=== PATIENT | male | born 1980 | race American Indian/Alaskan Native ===

== ENCOUNTER 2021-08-08 09:53 | Emergency (ER) | payer SELFPAY ==
[2021-08-08 10:05] VITALS: BP 154/103
[2021-08-08] MEDS ORDERED: ACETAMINOPHEN 500 MG TAB PO ONE (10:36)
--- NOTE | 2021-08-08 10:58 | Emergency Department Report ---
ED Male HPI - General Chief complaint: Urogenital-Male Stated complaint: POSS UTI Time Seen by Provider: 08/08/21 10:24 Source: patient Mode of arrival: Ambulatory Limitations: No Limitations - History of Present Illness Initial comments: 40-year-old -[place] male presents to the emergency room for 1 week history of hematuria. Patient reports that he noticed clots in his urine. He has no concern for STD. He does admit to urinary frequency. He states last night when he had intercourse with his he noticed blood. 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 He denies any body aches. Denies any testicular pain or testicular swelling no penile discharge. Patient reports he had a similar situation about a year ago has seen a urologist who told him that his urine was fine but he treated him presumptively for urinary tract infection. Onset/Timin -: week(s) Radiation: none Severity scale (0 -10): 0 blood in urine. denies: urinary retention, dysuria - Related Data Sexually active: Yes (No concerns for STD) Previous Rx's Medication Instructions Recorded Last Taken Type Naproxen [Naprosyn TAB] 500 mg PO BID #30 tablet 02/21/14 Unknown Rx Penicillin Vk [Veetids TAB] 500 mg PO QID #40 tablet 02/21/14 Unknown Rx Allergies Allergy/AdvReac Type Severity Reaction Status Date / Time No Known Allergies Allergy Verified 02/21/14 14:57 ED Review of Systems ROS: Stated complaint: POSS UTI Other details as noted in HPI Comment: All other systems reviewed and negative ED Past Medical Hx - Past Medical History Previous Medical History?: No - Surgical History Past Surgical History?: No - Social History Smoking Status: Never Smoker Substance Use Type: Alcohol - Medications Home Medications: Home Medications Medication Instructions Recorded Confirmed Last Taken Type Naproxen [Naprosyn TAB] 500 mg PO BID #30 tablet 02/21/14 Unknown Rx Penicillin Vk [Veetids TAB] 500 mg PO QID #40 tablet 02/21/14 Unknown Rx ED Physical Exam - General Limitations: No Limitations General appearance: alert, in no apparent distress - Head Head exam: Present: atraumatic, normocephalic - Eye Eye exam: Present: normal appearance - ENT ENT exam: Present: mucous membranes moist - Respiratory Respiratory exam: Absent: respiratory distress, accessory muscle use - Cardiovascular Cardiovascular Exam: Present: regular rate - GI/Abdominal GI/Abdominal exam: Present: soft - Extremities Exam Extremities exam: Present: normal inspection, full ROM - Back Exam Back exam: Present: normal inspection - Neurological Exam Neurological exam: Present: alert, oriented X3, CN II-XII intact, normal gait - Psychiatric Psychiatric exam: Present: normal affect, normal mood - Skin Skin exam: Present: warm, dry, intact, normal color. Absent: rash ED Course Vital Signs 08/08/21 08/08/21 10:03 10:04 Temperature 98.2 F 98.2 F Pulse Rate 72 71 Respiratory 20 Rate Blood Pressure 154/103 154/103 O2 Sat by Pulse 100 100 Oximetry ED Medical Decision Making - Medical Decision Making 40-year-old -[place] male presents to the emergency room for 1 week history of hematuria. Patient reports that he noticed clots in his urine. He has no concern for STD. He does admit to urinary frequency. He states last night when he had intercourse with his he noticed blood. 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 He denies any body aches. Denies any testicular pain or testicular swelling no penile discharge. Patient reports he had a similar situation about a year ago has seen a urologist who told him that his urine was fine but he treated him presumptively for urinary tract infection. Urinalysis sent out. Tylenol has been ordered. Critical care attestation.: If time is entered above; I have spent that time in minutes in the direct care of this critically ill patient, excluding procedure time. ED Disposition Clinical Impression: Gross hematuria Disposition: HOME / SELF CARE / HOMELESS Is pt being admited?: No Does the pt Need Aspirin: No Condition: Stable Instructions: Hematuria, Adult Additional Instructions: Urinalysis shows blood does not show any signs of infection. I recommended she follow-up with a urologist I have listed 1 below for your convenience. Referrals: KATE DUKE MD [Staff Physician] - 3-5 Days PRIMARY CARE, [Primary Care Provider] - 3-5 Days Time of Disposition: 11:29
[2021-08-08 11:21] LABS: Bilirubin,Urine NEG (Negative); Blood,Urine LG (Negative); Color,Urine Yellow (Yellow); Mucus,Urine 3+ /HPF; Urobilinogen,Urine < 2.0 mg/dL (<2.0)
[2021-08-08 11:22] LABS: RBC,Urine > 182.0 /HPF (0.0-6.0)
== END 2021-08-08 12:18 | disposition home or self-care (01) ==
LOC: ED 09:53
DX: R31.0 Gross hematuria (principal)
CPT/HCPCS: 81001; 99283